=== PATIENT | female | born 1985 | race Caucasian/White ===

== ENCOUNTER → 2016-12-23 | Outpatient (CLI) | payer OTHER ==
[~2016-12-23] MED LIST: ACET-711 PO
== END ==
LOC: RAD 15:02
PROVIDERS: ATTEND Family Medicine
DX: M41.87 Other forms of scoliosis, lumbosacral region (principal); M48.061 Spinal stenosis, lumbar region without neurogenic claudication; M47.896 Other spondylosis, lumbar region; M25.562 Pain in left knee
CPT/HCPCS: 72100; 72190

== ENCOUNTER 2017-02-04 10:17 | Emergency (ER) | payer OTHER ==
[~2017-02-04] VITALS: Ht 162.6 cm; Wt 67.7 kg
[2017-02-04 10:23] VITALS: BP 115/76
[2017-02-04] MEDS ORDERED: SULF1TAB24 PO (10:42)
== END 2017-02-04 11:06 | disposition home or self-care (01) ==
LOC: ED 11:03
DX: L05.01 Pilonidal cyst with abscess (principal)
CPT/HCPCS: 99283

== ENCOUNTER 2017-02-06 12:05 | Emergency (ER) | payer OTHER ==
[~2017-02-06] VITALS: Ht 162.6 cm; Wt 67.4 kg
[~2017-02-06 12:05] MED LIST changes: +SULF1TAB24 PO
[2017-02-06 12:09] VITALS: BP 113/75
== END 2017-02-06 13:07 | disposition left against medical advice (07) ==
LOC: ED 13:01
DX: L05.01 Pilonidal cyst with abscess (principal); Z53.21 Procedure and treatment not carried out due to patient leaving prior to being seen by health care provider

== ENCOUNTER 2017-06-17 07:38 | Emergency (ER) | payer SELFPAY ==
[~2017-06-17] VITALS: Ht 162.6 cm; Wt 67.4 kg
[2017-06-17 07:42] VITALS: BP 119/82
== END 2017-06-17 08:29 ==
LOC: ED 08:19
DX: J00 Acute nasopharyngitis [common cold] (principal); L02.31 Cutaneous abscess of buttock; F17.210 Nicotine dependence, cigarettes, uncomplicated
CPT/HCPCS: 99283

== ENCOUNTER 2018-01-06 22:09 | Emergency (ER) | payer OTHER ==
[~2018-01-06] VITALS: Ht 162.6 cm; Wt 71.0 kg
[2018-01-06 22:12] VITALS: BP 126/85
[2018-01-06] MEDS ORDERED: DEXAMETHASONE 4 MG TABLET PO STA (22:23)
[2018-01-06] MEDS ORDERED: DEXAMETHASONE 4 MG TABLET ONE (22:37)
== END 2018-01-06 22:42 | disposition home or self-care (01) ==
LOC: ED 22:36
DX: J20.8 Acute bronchitis due to other specified organisms (principal); J01.00 Acute maxillary sinusitis, unspecified; J01.10 Acute frontal sinusitis, unspecified; F17.210 Nicotine dependence, cigarettes, uncomplicated
CPT/HCPCS: 99283

== ENCOUNTER 2018-05-27 01:01 | Emergency (ER) | payer SELFPAY ==
[~2018-05-27] VITALS: Ht 162.6 cm; Wt 75.2 kg
[2018-05-27 01:06] VITALS: BP 143/83
--- NOTE | 2018-05-27 01:30 | NUR ---
"HEAD COLD" X ONE WEEK. +SUBJECTIVE FEVER. DENIES CP/PRODUCTIVE COUGH LAST TYLENOL @ 1500
[2018-05-27] MEDS ORDERED: DEXAMETHASONE 4 MG/ML, 1ML PO STA (01:33)
[2018-05-27] MEDS ORDERED: DEXAMETHASONE 4 MG TABLET ONE (01:36)
== END 2018-05-27 02:25 | disposition home or self-care (01) ==
LOC: ED 01:18
DX: J20.8 Acute bronchitis due to other specified organisms (principal); J01.10 Acute frontal sinusitis, unspecified
CPT/HCPCS: 99283; J1100

== ENCOUNTER 2018-06-10 09:15 | Emergency (ER) | payer OTHER ==
[~2018-06-10] VITALS: Ht 162.6 cm; Wt 75.0 kg
[2018-06-10 09:17] VITALS: BP 125/81
[2018-06-10] MEDS ORDERED: HYDROcodone/APAP 5/325 TABLET PO ONE (10:30)
[2018-06-10] MEDS ORDERED: KETOROLAC 30 MG/1 ML IM ONE (10:30)
[2018-06-10] MEDS ORDERED: HYDROcodone/APAP 5/325 TABLET ONE (10:34)
[2018-06-10] MEDS ORDERED: KETOROLAC 30 MG/1 ML ONE (10:34)
== END 2018-06-10 12:55 | disposition home or self-care (01) ==
LOC: ED 11:03
DX: S63.501A Unspecified sprain of right wrist, initial encounter (principal); S16.1XXA Strain of muscle, fascia and tendon at neck level, initial encounter; S60.211A Contusion of right wrist, initial encounter; S60.221A Contusion of right hand, initial encounter; Z90.710 Acquired absence of both cervix and uterus; F17.200 Nicotine dependence, unspecified, uncomplicated; Z88.0 Allergy status to penicillin; Z88.1 Allergy status to other antibiotic agents; V49.59XA Passenger injured in collision with other motor vehicles in traffic accident, initial encounter; Y93.89 Activity, other specified; Y92.89 Other specified places as the place of occurrence of the external cause; Y99.8 Other external cause status
CPT/HCPCS: 29125; 72125; 73030; 73110; 96372; 99284; J1885

== ENCOUNTER 2018-10-11 02:15 | Emergency (ER) | payer MEDICAID, OTHER ==
[~2018-10-11] VITALS: Ht 162.6 cm; Wt 75.0 kg
[2018-10-11 02:16] VITALS: BP 132/88
== END 2018-10-11 02:54 | disposition home or self-care (01) ==
LOC: ED 02:51
DX: L05.01 Pilonidal cyst with abscess (principal); F17.200 Nicotine dependence, unspecified, uncomplicated; Z90.710 Acquired absence of both cervix and uterus
CPT/HCPCS: 10080; 99284; J3490

== ENCOUNTER 2018-10-18 21:35 | Emergency (ER) | payer MEDICAID ==
[~2018-10-18] VITALS: Ht 162.6 cm; Wt 75.0 kg
[2018-10-18 21:49] VITALS: BP 124/72
== END 2018-10-18 23:52 | disposition home or self-care (01) ==
LOC: ED 23:50
DX: M13.162 Monoarthritis, not elsewhere classified, left knee (principal); Z90.710 Acquired absence of both cervix and uterus
CPT/HCPCS: 99284

== ENCOUNTER 2020-01-17 19:22 | Emergency (ER) | payer MEDICAID ==
[~2020-01-17] VITALS: Ht 162.6 cm; Wt 78.2 kg
--- NOTE | 2020-01-17 21:36 | NUR ---
pt to room from lobby
--- NOTE | 2020-01-17 22:09 | NUR ---
UA SENT TO LAB. PT UP TO BATHROOM. PT AMBULATING WITH A STEADY GAIT.
[2020-01-17] MEDS ORDERED: HYDROcodone/APAP 5/325 TABLET PO ONE (22:30)
[2020-01-17] MEDS ORDERED: SODIUM CHLORIDE FLUSH 10ML SYR IVF ONE (22:30)
[2020-01-17] MEDS ORDERED: ONDANSETRON 2MG/ML, 2ML IVPush ONE (22:30)
[2020-01-17 22:35] LABS: MICROSCOPIC INDICATED
[2020-01-17] MEDS ORDERED: ONDANSETRON 2MG/ML, 2ML ONE (22:57)
[2020-01-17] MEDS ORDERED: MORPHINE SULFATE 4 MG/ML, 1ML ONE (22:58)
[2020-01-17] MEDS: MORPHINE SULFATE 4 MG/ML, 1ML IVPush PRN (23:01)
[2020-01-17 23:06] LABS: BASOPHILS % (AUTO) 1 % (0-1); EOSINOPHILS % (AUTO) 1 % (1-7); LYMPHOCYTES % (AUTO) 27 % (22-44); MEAN CORPUSCULAR HEMOGLOBIN 29.2 pg (27.0-34.8); MEAN CORPUSCULAR HGB CONC 33.5 g/dL (32.4-35.8); MEAN PLATELET VOLUME 7.7 fL (7.4-10.4); MONOCYTES % (AUTO) 10 % (2-9); NEUTROPHILS % (AUTO) 62 % (42-75); PLATELET COUNT 309 x10^3/uL (130-400); RED BLOOD COUNT 5.15 x10^6/uL (3.82-5.3); RED CELL DISTRIBUTION WIDTH 13.6 % (9.6-15.2)
[2020-01-17 23:08] LABS: MD NO
--- NOTE | 2020-01-17 23:09 | NUR ---
PIV PLACED AND PT MEDICATED FOR PAIN. PT TO CT
[2020-01-17 23:17] LABS: ALANINE AMINOTRANSFERASE 108 U/L (12-78); ALBUMIN 3.9 g/dL (3.4-5.0); CALCIUM 9.5 mg/dL (8.5-10.1); CREATININE 1.09 mg/dL (0.55-1.02)
--- NOTE | 2020-01-17 23:23 | NUR ---
PT BACK TO ROOM. VSS. PT PLACED ON PULSE OX. PAIN HAS IMPROVED SINCE MEDS. CALL LIGHT IN REACH
[2020-01-17 23:25] LABS: ANION GAP 4 mmol/L (5-15); CHLORIDE 106 mmol/L (98-107)
[2020-01-17 23:26] LABS: ALKALINE PHOSPHATASE 201 U/L (45-117); BILIRUBIN,TOTAL 0.4 mg/dL (0.2-1.0); TOTAL PROTEIN 7.7 g/dL (6.4-8.2)
[2020-01-18] MEDS ORDERED: MORPHINE SULFATE 4 MG/ML, 1ML ONE (00:19)
[2020-01-18] MEDS: MORPHINE SULFATE 4 MG/ML, 1ML IVPush PRN (00:26)
[2020-01-18 00:32] VITALS: BP 104/67
--- NOTE | 2020-01-18 00:32 | NUR ---
pt remedicated for pain. Pt getting dressed and ride at bedside
== END 2020-01-18 00:38 | disposition home or self-care (01) ==
LOC: ED 23:28
DX: R31.0 Gross hematuria (principal); R94.5 Abnormal results of liver function studies; Z90.710 Acquired absence of both cervix and uterus
CPT/HCPCS: 36415; 74176; 80053; 81001; 85025; 87086; 96374; 96375; 96376; 99284; J2270; J2405